=== PATIENT | male | born 1965 | race Hispanic/Latino ===

== ENCOUNTER → 2022-06-26 | Outpatient (CLI) | payer OTHER | END | disposition home or self-care (01) | LOC: RAH 11:22 | PROVIDERS: ATTEND Family Medicine | DX: M25.511 Pain in right shoulder (principal); M25.512 Pain in left shoulder; M54.50 Low back pain, unspecified; M19.012 Primary osteoarthritis, left shoulder; M19.011 Primary osteoarthritis, right shoulder; M47.816 Spondylosis without myelopathy or radiculopathy, lumbar region; M48.061 Spinal stenosis, lumbar region without neurogenic claudication | CPT/HCPCS: 72100; 73030 ==

== ENCOUNTER 2024-10-22 07:42 | Observation (INO) | payer MEDICAID ==
[2024-10-19 16:49] LABS: BASOPHILS # (AUTO) 0.02 K/uL (0.00-0.20); BASOPHILS % (AUTO) 0.4 % (0.0-5.0); EOSINOPHILS # (AUTO) 0.12 K/uL (0.00-0.70); EOSINOPHILS % (AUTO) 2.3 % (0.0-8.0); HEMATOCRIT 42.4 % (42-54); IMMATURE GRANULOCYTE ABSOLUTE 0.02 K/uL (0-1); LYMPHOCYTES # (AUTO) 1.7 K/uL (1.0-4.8); LYMPHOCYTES % (AUTO) 31.1 % (21.0-51.0); MEAN CORPUSCULAR HEMOGLOBIN 25.3 pg (27.0-33.0); MEAN CORPUSCULAR HGB CONC 30.9 g/dL (32.0-36.0); MONOCYTES # (AUTO) 0.5 K/uL (0.1-1.0); MONOCYTES % (AUTO) 8.7 % (3.0-13.0); NEUTROPHILS % (AUTO) 57.1 % (40.0-77.0); PLATELET COUNT (AUTO) 83 K/uL (130-400); RED BLOOD CELL COUNT(AUTO) 5.17 MIL/uL (4.50-6.20); RED CELL DISTRIBUTION WIDTH 17.3 % (11.0-15.5); WHITE BLOOD COUNT (AUTO) 5.3 K/uL (4.8-10.8)
[2024-10-19 16:57] LABS: POTASSIUM 4.8 mmol/L (3.5-5.1)
[2024-10-19 17:09] VITALS: BP 104/53; PULSE 89; RESP 15; TEMP 97.7
--- NOTE | 2024-10-20 06:28 | EKG ---
[facility] Test Date: 2024-10-19 Test Time: 17:02:58 Pat Name: ANDRE CHOPRA Department: Patient ID: [facility] [id number] Room: Gender: M Foreign Language Stenographer: [id number] : 1965 Requested By: BROOKLYN RAZO Order Number: [id number] Reading MD: Kyler Aguiar Measurements Intervals [place] Rate: 93 P: 60 IL: 148 QRS: 81 QRSD: 91 T: 31 QT: 363 QTc: 452 Interpretive Statements Sinus rhythm Low voltage, precordial leads No previous ECG available for comparison Electronically Signed On 10-20-2024 18:10:38 [employer] by Kyler Aguiar Please click the below link to view image of tracing.
--- NOTE | 2024-10-21 09:26 | NUR ---
report reported platelets to dr valladares received orders to have platelets available for surgery.
[~2024-10-22] VITALS: Ht 170.2 cm; Wt 144.6 kg
[2024-10-22] VITALS (26 sets, daily range): BP systolic 117–174; BP diastolic 60–81; PULSE 65–94; RESP 14–20; TEMP 97–98.3; O2SAT 95–96
[~2024-10-22 07:42] MED LIST: LISI10TA24 PO; METF-446 PO
[2024-10-22] MEDS: 0.9%NACL 1000ML 1,000 ML IV ONE (10:31)
[2024-10-22] MEDS: ceFAZolin SODIUM 2 GM VIAL ONE (10:31)
[2024-10-22] MEDS: metRONIDazole 500MG/100ML BAG 200 ML ONE (10:31)
[2024-10-22] MEDS ORDERED: TAMS-1 PO (10:37)
[2024-10-22] MEDS ORDERED: MULT-1367 PO (10:37)
[2024-10-22] MEDS ORDERED: ASCO500T20 PO (10:37)
[2024-10-22] MEDS ORDERED: CYAN-35 PO (10:37)
[2024-10-22] MEDS ORDERED: FERR324T4 PO (10:37)
[2024-10-22] MEDS ORDERED: MELO-108 PO (10:37)
[2024-10-22] MEDS ORDERED: GABA-1555 PO (10:37)
[2024-10-22] MEDS: acetaMINOPHEN 100 ML ONE (13:14)
[2024-10-22] MEDS: FAMOTIDINE 20MG VIAL IV ONE (13:15)
[2024-10-22] MEDS ORDERED: ketaMINE HCL 100 MG/ML 5ML VIAL IJ ONE (13:17)
[2024-10-22] MEDS ORDERED: LIDOCAINE PF 100MG/5ML (2%) SYRINGE 5ML ONE (13:21)
[2024-10-22] MEDS ORDERED: rocuRONium bROMide 10MG/1ML 5ML VL ONE (13:22)
[2024-10-22] MEDS ORDERED: FENTanyl CITRate PF 50 MCG/1 ML 2ML VIAL ONE (13:22)
[2024-10-22] MEDS ORDERED: proPOFol 10 MG/ML 20ML VIAL IV ONE (13:22)
[2024-10-22] MEDS: IpraTROPium/alBUTERol SULFATE 3 ML SOLUTION IH ONE (13:30)
[2024-10-22] MEDS ORDERED: dexaMETHasone SOD PHOSPHATE 10MG/ML 1ML VIAL ONE (13:40)
[2024-10-22] MEDS ORDERED: ondanSETRON 4MG INJ ONE (13:41)
[2024-10-22] MEDS: ceFAZolin SODIUM 1 GM VIAL ONE (13:50)
[2024-10-22] MEDS ORDERED: GLYCOPYRROLATE 0.2 MG/ML 5 ML VIAL ONE (14:03)
[2024-10-22] MEDS: BUPIvacaine/PF 0.5% 30ML VIAL ONE (14:06)
[2024-10-22] MEDS ORDERED: NEOSTIGMINE METHYLSULFATE 1MG/ML IV ONE (14:59)
[2024-10-22] MEDS ORDERED: PROCHLORPERAZINE 10MG/2ML INJ IV PRN (15:30)
[2024-10-22] MEDS ORDERED: ondanSETRON 4MG INJ IVP PRN (15:30)
[2024-10-22] MEDS: ondanSETRON 4MG INJ ONE (15:47)
--- NOTE | 2024-10-22 15:59 | PN ---
GENERAL SURGERY PROGRESS NOTE Date/Time Patient Seen: 10/22/2024 ] Problem List: [ ] Interval History: [Postop day 0. Pain tolerable with p.r.n. medication. ] Current Medications Medications (Trade) Dose Ordered Sig/Aissatou Route Start Time Stop Time Status Last Admin Dose Admin Famotidine (Pepcid 20mg Vial) 20 mg BID IV 10/22/24 21:00 11/21/24 20:59 Lactated Ringer's 1,000 ml @ 150 mls/hr Q6H40M IV 10/22/24 15:30 11/21/24 15:29 Physical Examination: GENERAL: [No acute distress.] Abdominal exam: Incisions clean, dry and intact, Dermabond in place Vital Signs (last 8hr) Date Time Temp Pulse Resp B/P (MAP) Pulse Ox O2 Delivery O2 Flow Rate FiO2 10/22/24 15:39 65 20 151/72 100 Nonrebreathing Mask 10.0 10/22/24 15:34 75 20 151/73 100 Nonrebreathing Mask 10.0 10/22/24 15:29 74 20 143/68 100 Nonrebreathing Mask 10.0 10/22/24 15:24 97.5 76 19 156/72 100 Nonrebreathing Mask 10.0 10/22/24 13:30 94 18 10/22/24 08:49 97.0 92 19 117/65 98 Room Air Laboratory: [ ] Chemistry Labs: Test 10/22/24 15:35 Range/Units Whole Blood Glucose 211 H 70-110 MG/DL Diagnostics / Radiology: [Copy/Paste Echos/Imaging Report here] Impression and Plan: [Plan is for discharge home in the next day or two, as long as patient tolerating p.o. intake, ambulatory and pain under control. Discussed with patient and family. They understand and agree. ] BROOKLYN RAZO MD Oct 22, 2024 15:59
--- NOTE | 2024-10-22 16:07 | OP ---
Operative Note: DATE OF PROCEDURE: 10/22/24 SURGEON: BROOKLYN RAZO MD TOP LIFT NAILER: Javi Razo MD PA-C ANESTHESIA: General and Local ANESTHESIOLOGIST/SUPERVISOR [place] [facility] [place] PREOPERATIVE DIAGNOSIS: Morbid obesity and large ventral hernia POSTOPERATIVE DIAGNOSIS: As above SYNOPSIS: Sleeve gastrectomy performed without incident PROCEDURE: 1. Robotic assisted sleeve gastrectomy 2. Omentoplasty to reinforced cut edge of stomach 3. EGD ESTIMATED BLOOD LOSS: Min, <30cc INDICATIONS: As above DESCRIPTION OF PROCEDURE: After standard precautions and preparations were undertaken a Veress needle and optical trocar were used to enter the abdominal cavity. All other instruments were placed under direct vision. The robotic system was docked in the standard fashion. We began our dissection by mobilizing the greater curve of the stomach with care taken to preserve the blood supply to the antrum. We mobilized up to the area of the angle of his. When this was complete my partner passed a 40 Persian bougie down into the stomach for decompression and proper sizing during the stapling portion of the case. A linear stapler with staple line reinforcement was introduced into the abdominal cavity such that we could start stapling. When the stapling was complete the bougie was removed and replaced with the EGD scope. With the EGD scope in place we are able to verify that the mucosa appeared healthy and well perfused. There was no sign of over tightening at the angula ris, no twisting or turning on the body of the stomach, and no sign of stapling onto the GE junction. A leak test by insufflating under fluid demonstrated no sign of leak or problem. The EGD scope was removed. I performed an omentoplasty by suturing the nearby omentum to the cut edge of the stomach in order to reinforced the closure and allow for stability to the new cut edge of the stomach. My partner removed the partial gastrectomy specimen through one of the lateral trocar sites and we closed the fascia at this site to prevent future hernia. Prior to ending the case all instrument counts were verified as correct including needles and sponges. The patient tolerated the procedure well and was prepared for extubation and transferred to PACU in stable condition. BROOKLYN RAZO MD Oct 22, 2024 16:07
[2024-10-22] MEDS: hydroMORPHone 1 MG INJ IVP PRN (16:41)
[2024-10-22] MEDS: LACTATED RINGERS 1000ML 1,000 ML IV SCH (17:23)
[2024-10-22] MEDS: FAMOTIDINE 20MG VIAL IV SCH (18:59)
[2024-10-22] MEDS: ketOROlac 30MG VIAL (30MG/ML) IV PRN (19:00)
--- NOTE | 2024-10-22 19:00 | NUR ---
PT STABLE- FAMILY AT BEDSIDE. SCD'S ON BILATERAL LOWER EXTREMITIES. ORAL SWABS PROVIDED. PT NOW CONVERSANT AND BEHAVIOR APPROPRIATE. HAND OFF REPORT GIVEN TO BROOKLYN DELAROSA
[2024-10-22] MEDS: HYDROcod/acetaMINOPHEN 7.5/325 MG 15 ML UDCUP PO PRN (21:53)
[2024-10-23 04:00] VITALS: BP 149/74; PULSE 107; RESP 19; TEMP 98
[2024-10-23 08:00] VITALS: BP 128/58; PULSE 85; RESP 20; TEMP 98.3
[2024-10-23 08:15] VITALS: O2SAT 96
[2024-10-23] MEDS: tamSULOsin HCL 0.4 MG CAP.ER.24H PO SCH (08:40)
[2024-10-23] MEDS: GABAPENTIN 800MG PO SCH (08:43)
--- NOTE | 2024-10-23 10:00 | NUR ---
Order received and spoke to nurse who stated patient has been walking in halls without signs of instability. PT will sign off unless re ordered.
[2024-10-23 11:55] VITALS: BP 112/60; PULSE 87; RESP 20; TEMP 98
--- NOTE | 2024-10-23 12:22 | NUR ---
DCP Pt is awake, alert, oriented. PCP is Angelica Costello MD. Lives with daughter Kierra Gumzán [phone]. Pt does not work and is disabled . States he has shower chair and is able to perform ADLs with assistance. Pt has a provider from [facility], [place], operated by [facility]. Addendum: 10/23/24 at 1237 by FRANCISCA MORGAN RN Amended: Links added.
[2024-10-23 16:00] VITALS: BP 112/55; PULSE 85; RESP 20; TEMP 97.8
--- NOTE | 2024-10-23 17:09 | PN ---
GENERAL SURGERY PROGRESS NOTE Date/Time Patient Seen: [ October 23, 2024 at 4:45 p.m.] Problem List: [Morbid severe obesity and associated conditions Ventral hernia without obstruction or gangrene ] Interval History: [The patient is a pleasant 59-year-old male status post vertical sleeve gastrectomy done by Dr. Negro Simpson. The patient is awake alert and oriented x3 and resting comfortably in bed. The patient is not in acute distress. The patient is tolerating a clear liquid diet well without any upper or lower GI issues. The patient endorses ambulation and passing gas. Patient endorses pain that is tolerable with p.r.n. medication. The patient is currently using an abdominal binder and support belt for his ventral hernia. The patient is voiding without any difficulty. Patient's vital signs are unremarkable and clinically stable. The patient may go home today.] Current Medications Medications (Trade) Dose Ordered Sig/Aissatou Route Start Time Stop Time Status Last Admin Dose Admin Famotidine (Pepcid 20mg Vial) 20 mg BID IV 10/22/24 21:00 11/21/24 20:59 10/23/24 08:40 20 MG Home Med (Home Medication) TID PO 10/23/24 09:00 11/22/24 08:59 Lactated Ringer's 1,000 ml @ 150 mls/hr Q6H40M IV 10/22/24 15:30 11/21/24 15:29 10/23/24 13:26 150 MLS/HR Tamsulosin HCl (FloMAX) 0.4 mg DAILY PO 10/23/24 09:00 11/22/24 08:59 10/23/24 08:40 0.4 MG Physical Examination: GENERAL: [No acute distress.] HEAD: [Normal with no signs of head trauma.] EYES: [PERRLA, EOMI, conjunctiva and sclera normal.] ENT: [Hearing grossly intact, normal oropharynx.] NECK: [Supple without JVD. There is no tenderness, lymphadenopathy, or masses. No thyromegaly. Normal carotid upstrokes without bruits.] LUNGS: [Clear breath sounds bilaterally. There are right basilar rales one third of the way up the chest. No wheezes, or rhonchi.] HEART: [Normal rate and rhythm. Normal S1 and S2 without mumurs, gallop or rub.] VASC: [Peripheral pulses +2 bilaterally.] ABD: [Bowel sounds normal, soft, nontender, no masses, no organomegaly. No audible bruits.] : [Not examined] LYMPH: [No lymphadenopathy noted.] EXT: [No clubbing, cyanosis or edema.] SKIN: [No rashes or lesions noted.] NEURO: [Awake, alert, and oriented x3. No focal sensory or strength deficits noted.] Vital Signs (last 8hr) Date Time Temp Pulse Resp B/P (MAP) Pulse Ox O2 Delivery O2 Flow Rate FiO2 10/23/24 11:55 98.1 87 20 112/60 96 Nasal Cannula Laboratory: [ ] Chemistry Labs: Test 10/23/24 05:08 Range/Units Whole Blood Glucose 189 H 70-110 MG/DL Diagnostics / Radiology: [Copy/Paste Echos/Imaging Report here] Impression and Plan: [Postoperative day 1. The patient is progressing well. We will continue to monitor and treat pain as needed. GI/DVT prophylaxis recommended and encouraged. The patient may advance to a full liquid diet and begin bariatric multivitamins. May resume home medications. Incision care, hydration, activity and dietary restrictions discussed with the patient. The patient understands and agrees. The plan is to discharge the patient home today and follow up outpatient in 5-10 days. Postoperative follow-up appointment and home medications established by my office staff. ] JABARI DOZIER Oct 23, 2024 17:09
--- NOTE | 2024-10-23 17:10 | DS ---
Discharge Summary Assessment The patient tolerated the procedure well. Pain is well managed. Tolerating p.o. intake well without any upper or lower GI issues. Ambulating without difficulty. Hospital Course As the patient is progressing well. See for further details on today's progress note. Patient is cleared for discharge today JABARI DOZIER Oct 23, 2024 17:10
--- NOTE | 2024-10-23 17:30 | NUR ---
DISCHARGE. PATIENT HAS BEEN DISCHARGED HOME. PIV REMOVED, PRESSURE GAUZE AND TAPE APPLIED TO SITE. PATIENT AND DAUGHTER AT BEDSIDE, BOTH VERBALIZE UNDERSTANDING OF DISCHARGE PAPERWORK. PATIENT EDUCATED ON THE IMPORTANCE OF STAYING ON A FULL LIQUID DIET UNTIL FOLLOW UP WITH DR RAZO. PATIENT VERBALIZES UNDERSTANDING. PATIENT WHEELED DOWN TO PRIVATE AUTOMOBILE BY ELECTRONICS MECHANIC, ACCOMPANIED BY DAUGHTER.
== END 2024-10-23 18:00 | disposition home or self-care (01) ==
LOC: DAH 07:42 → DAHIP 07:43 → INTOOBSV 07:43 → DAH 07:43 → EDSTATUS 14:00 → 4BH 16:30
PROVIDERS: ADMIT Surgery; ATTEND Surgery
DX: E66.01 Morbid (severe) obesity due to excess calories (principal); K43.9 Ventral hernia without obstruction or gangrene; K76.0 Fatty (change of) liver, not elsewhere classified; I10 Essential (primary) hypertension; E11.9 Type 2 diabetes mellitus without complications; E78.2 Mixed hyperlipidemia; D50.9 Iron deficiency anemia, unspecified; M19.90 Unspecified osteoarthritis, unspecified site; Z68.42 Body mass index [BMI] 45.0-49.9, adult; Z79.899 Other long term (current) drug therapy; Z85.038 Personal history of other malignant neoplasm of large intestine
CPT/HCPCS: 80048; 85025; 86850; 86900; 86901; 36415; 93005; 43775; 96374; 96375; 82948 ×5; 88307; 94640; 96376; A6260; G0378 ×10; A4663; J7030 ×2; A4215 ×3; J3490 ×6; J3010; J0690 ×2; J1171 ×3; J1100; J2003; J2704; J2405 ×2; J1885 ×2; J2710; J0665; A4930; A4223 ×3; A4213; A4222; A4221; A4216; A4600; 43235